=== PATIENT | female | born 1960 | race Caucasian/White ===

== ENCOUNTER 2017-04-23 10:35 | Emergency (ER) | payer BC ==
--- NOTE | ~2017-04-23 | CR63 ---
[facility] A Service of [facility] RADIOLOGY TEXT RESULTS PATIENT: ADALBERTO RL LOCATION: SED : 58 UNIT #: [id number] AGE: [address]: Rob Badillo MD SEX: F ORDER DR: [id number] [place] [id number] E MR#: [id number] Acc #: [id number] NAME: ADALBERTO LR : 1960 SEX: F STUDY DATE/TIME: UNIT: SED ROOM: STUDY DESCRIPTION: CR Chest 2 View Attending Physician: Rob Badillo M.D. Ordering Physician: Rob Badillo M.D. Primary Care Physician: Yamilka Rucker M.D. MEDICAL IMAGING REPORT This report is preliminary unless electronic signature is present. EXAM Chest 2 views 04/23/2017 1201 hours HISTORY 56-year-old woman with cough and shortness of air since last night. History of hypertension, asthma and thyroid disease. COMPARISON 01/20/2014 FINDINGS Upright PA and lateral views of the chest demonstrate heart size at the upper limits of normal with mildly tortuous aorta. The pulmonary vascularity is within normal limits. There is mild basilar vascular crowding but no definite edema, pneumonia or effusion. IMPRESSION 1. Heart size at the upper limits of normal with stable tortuous aorta. 2. Mild basilar vascular crowding. No acute pulmonary density or pleural effusion. Dictated by... Aleja Ochoa M.D. THIS IS AN ELECTRONICALLY VERIFIED REPORT Aleja Ochoa M.D. at 04/24/2017 9:25 AM SMM/to TD: 04/23/2017 16:35 JOB #: [id number] MEDICAL IMAGING REPORT [facility] A Service [facility] RADIOLOGY TEXT RESULTS PATIENT: ADALBERTO LR LOCATION: SED : 58 UNIT #: [id number] AGE: [address]: Rob Badillo MD SEX: F ORDER DR: Page 1 of 1
[~2017-04-23 10:35] MED LIST: ALB/IPRATROPIUM/1 E1 INH; AMITRIPTYLINE H50 MG PO; AMITRYPTYLINE PO; BENADRYL25 M1 PO; CARDIZEM LA240 MG PO; CYMBALTA30 MG PO; DIAZEPAM PO; DIAZIDE PO; DILTIAZEM 24HR240 M1 PO; ESTRADIOL1 MG PO; FIORICET 50-321 EACH PO; FLONASE16 GM; FLOVENT7.9 GM 44 IH; FLOVENT7.9 GM INH; GABAPENTIN300 M2 PO; HCTZ PO; IBUPROFEN200 M1 PO; LASIX20 MG PO; LEVAQUIN PO; LISINOPRIL10 MG PO; LISINOPRIL5 MG PO; METOPROLOL TART25 MG PO; MOTRIN100 M1 PO; MULTI-VITAMIN1 TAB PO; NASONEX17 GM; NUPRIN200 M1 PO; OMEGA 3-6-9 11200 MG PO; SINGULAIR PO; SYMBICORT INH; TOPROL XL; VENTOLIN5 MG/ML; XOPENEX CO1.25 MG/0. IH; XOPENEX1.25 MG/3 IH
[2017-04-23] MEDS ORDERED: REMERON15 MG PO (10:50)
[2017-04-23] MEDS ORDERED: BUPROPION XL300 MG PO (10:51)
[2017-04-23] MEDS ORDERED: BENADRYL25 M1 PO (10:51)
== END 2017-04-23 12:43 | disposition home or self-care (01) ==
LOC: SED 10:35
DX: J20.9 Acute bronchitis, unspecified (principal); K58.9 Irritable bowel syndrome, unspecified; Z91.040 Latex allergy status; Z88.2 Allergy status to sulfonamides; Z88.8 Allergy status to other drugs, medicaments and biological substances; Z88.5 Allergy status to narcotic agent; Z79.899 Other long term (current) drug therapy
CPT/HCPCS: 71020; 94640; 99284

== ENCOUNTER → 2017-07-18 | Outpatient (CLI) | payer BC ==
[~2017-07-18] MED LIST changes: +BUPROPION XL300 MG PO; +REMERON15 MG PO
--- NOTE | ~2017-07-18 | MY30 ---
[facility] A Service of [facility] RADIOLOGY TEXT RESULTS PATIENT: ADALBERTO LR LOCATION: [facility] : 58 UNIT #: [id number] AGE: [address]: Yamilka Rucker MD SEX: F ORDER DR: [id number] [address] [address] [id number] MR#: [id number] Acc #: [id number] NAME: ADALBERTO LR : 1960 SEX: F STUDY DATE/TIME: 07/18/2017 10:32 UNIT: [facility] ROOM: STUDY DESCRIPTION: MY SCREEN NADIR BILAT DIGITAL Attending Physician: Yamilka Rucker M.D. Referring Physician: Yamilka Rucker M.D. Ordering Physician: Yamilka Rucker M.D. Primary Care Physician: Yamilka Rucker M.D. MEDICAL IMAGING REPORT This report is preliminary unless electronic signature is present. EXAM Bilateral digital screening mammogram with CAD DATE 07/18/2017 HISTORY 56-year female with family history of breast cancer in a paternal aunt and 3 maternal great-aunts. No personal history of breast cancer or current complaints. COMPARISON Bilateral screening mammogram 03/01/2016, 02/27/2015, 12/24/2013. FINDINGS CC and MLO views were obtained of each breast utilizing digital technique and reviewed with an FDA-approved CAD device. Scattered fibroglandular densities are present bilaterally. Fibroglandular dominance in the lateral hemisphere left breast is unchanged. No new or suspicious nodule is identified. Less than 5 mm circumscribed nodule within the superior hemisphere right breast MLO view is unchanged from prior in keeping with benign finding such as a tiny cyst or intramammary lymph node. Benign round calcifications are present bilaterally. No suspicious clustered microcalcification. IMPRESSION BIRADS category 2. Benign findings. Routine bilateral screening mammogram is recommended in 1 year. Patients over the age of 40 are entered into a reminder system with target due date for the next mammogram. A result letter will also be sent to the patient. [facility] A Service of [facility] RADIOLOGY TEXT RESULTS PATIENT: ADALBERTO LR LOCATION: [facility] : 58 UNIT #: [id number] AGE: [address]: Yamilka Rucker MD SEX: F ORDER DR: BIRADS: 2, benign findings. Dictated by... Marleny Solano M.D. THIS IS AN ELECTRONICALLY VERIFIED REPORT Marleny Solano M.D. at 07/23/2017 3:26 PM MELANY/dustin TD: 07/18/2017 23:04 JOB #: [id number] MEDICAL IMAGING REPORT Page 1 of 1
[2017-07-18 09:58] LABS: BASOPHIL% 0.5 % (0-2.5); EOSINOPHIL# 0.2 X10e3 (0-0.7); EOSINOPHIL% 2.5 % (0.0-7.0); HEMOGLOBIN 15.5 gm/dL (12.0-16.0); LYMPHOCYTE# 1.7 X10e3 (1.0-3.5); LYMPHOCYTE% 22.6 % (17.0-45.0); MEAN CELL VOLUME 85.9 FL (83-96); MEAN CORPUSCULAR HGB CONC 33.8 g/dL (30-36); MEAN PLATELET VOLUME 8.6 FL (6.5-11.5); MONOCYTE# 0.5 X10e3 (0-1.0); MONOCYTE% 6.2 % (3.0-12.0); NEUTROPHIL% 68.2 % (40-75); PLATELET COUNT 290 X10e3 (140-420); RED BLOOD COUNT 5.35 X10e (3.90-5.30); RED CELL DISTRIBUTION WIDTH 13.6 % (11.0-15.5); WHITE BLOOD COUNT 7.4 X10e3 (4.0-10.5)
[2017-07-18 10:03] LABS: DIFF IND NO
[2017-07-18 10:13] LABS: ALBUMIN SERUM 4.3 g/dL (3.5-5.0); BILIRUBIN,TOTAL 0.7 mg/dL (0.2-2.0); BUN/CREATININE RATIO 16.66; CALCIUM SERUM 8.9 mg/dL (8.4-10.2); CREATININE SERUM 0.9 mg/dL (0.6-1.4); POTASSIUM 4.2 mmol/L (3.5-5.1); PROTEIN TOTAL SERUM 7.6 g/dL (6.0-8.3)
[2017-07-18 11:13] LABS: URINE APPEARANCE CLEAR; URINE BILIRUBIN NEG (NEG); URINE BLOOD TRACE-LYSED (NEG); URINE COLOR YELLOW; URINE GLUCOSE NEG (NORM); URINE KETONE NEG (NEG); URINE LEUKOCYTE ESTERASE NEG (NEG); URINE NITRATE NEG (NEG); URINE PROTEIN NEG (NEG); URINE UROBILINOGEN 0.2 MG/DL (NORM)
[2017-07-18 11:22] LABS: MICRO INDICATED? YES
[2017-07-18 11:30] LABS: URINE BACTERIA NEG (NEG); URINE RBC 0-2 /[HPF] (0-2); URINE SQUAMOUS EPITHELIAL CELL OCCAS /[HPF]; URINE WBC 0-2 /[HPF] (0-5)
[2017-07-22 10:25] LABS: MICROALB UR (PNL) 0.6 mg/dL (***)
== END | disposition home or self-care (01) ==
LOC: SMAM 09:20
PROVIDERS: Family Medicine
DX: Z12.31 Encounter for screening mammogram for malignant neoplasm of breast (principal); R73.09 Other abnormal glucose; Z80.3 Family history of malignant neoplasm of breast
CPT/HCPCS: 36415; 80053; 80061; 81003; 82043; 82306; 82570; 83036; 84443; 85025; G0202